=== PATIENT | male | born 1990 ===

== ENCOUNTER 2017-10-29 11:03 | Emergency (ER) | payer SELFPAY ==
[~2017-10-29] VITALS: Ht 177.8 cm; Wt 82.0 kg
[2017-10-29 11:19] VITALS: BP 134/74; PULSE 64; RESP 18; TEMP 97.9; O2SAT 100
[2017-10-29 11:36] VITALS: BP 131/78; PULSE 73; RESP 19; O2SAT 99
--- NOTE | 2017-10-29 11:36 | PD ---
HPI Chief Complaint: GI Complaint Time Seen by Provider: 11:24 Travel History International Travel<30 days: No Contact w/Intl Traveler<30days: No Traveled to known affect area: No History of Present Illness HPI This patient complains of nausea and vomiting. Duration 5 hours. Symptoms are moderately severe. He is diaphoretic. He is having abdominal pain but no fever or diarrhea. No abdominal surgeries. Patient was drinking alcohol last night. He is a daily user of marijuana. He recently was snorting some cocaine. He denies ever using IV drugs. No alleviating factors. Symptoms exacerbated by his polysubstance abuse. [facility] Social History Alcohol Use: No Tobacco Use: No Substance Use: No Allergies-Medications (Allergen,Severity, Reaction): Coded Allergies: No Known Allergies (Unverified , 10/29/17) Reported Meds & Prescriptions Reported Meds & Active Scripts Active Zofran Odt (Ondansetron Odt) 4 Mg Tab 4 Mg SL Q6HR PRN Review of Systems General / Constitutional: No: Fever Eyes: No: Visual changes HENT: No: Headaches Cardiovascular: Positive: Diaphoresis, No: Chest Pain or Discomfort Respiratory: No: Shortness of Breath Gastrointestinal: Positive: Nausea, Vomiting, No: Abdominal Pain Genitourinary: No: Dysuria Musculoskeletal: No: Pain Skin: No Rash Neurologic: No: Weakness Psychiatric: Positive: Substance Abuse, No: Depression Endocrine: No: Polydipsia Hematologic/Lymphatic: No: Easy Bruising Physical Exam Narrative GENERAL: Well-nourished, well-developed patient with nausea and vomiting diaphoresis . SKIN: Focused skin assessment reveals no rash and nodules. Skin is Warm and diaphoretic . HEAD: Atraumatic. Normocephalic. EYES: Pupils equal and round. No scleral icterus. No injection or drainage. ENT: No nasal bleeding or discharge. Mucous membranes pink and moist. NECK: Trachea midline. No JVD. CARDIOVASCULAR: Regular rate and rhythm. No murmur appreciated. RESPIRATORY: No accessory muscle use. Clear to auscultation. Breath sounds equal bilaterally. GASTROINTESTINAL: Abdomen soft, right lower quadrant is tender without rebound or guarding, nondistended. Hepatic and splenic margins not palpable. MUSCULOSKELETAL: No obvious deformities. No clubbing. No cyanosis. No edema. NEUROLOGICAL: Awake and alert. No obvious cranial nerve deficits. Motor grossly within normal limits. Normal speech. PSYCHIATRIC: Appropriate mood and affect; insight and judgment poor . Data Data Last Documented VS Vital Signs Date Time Temp Pulse Resp B/P (MAP) Pulse Ox O2 Delivery O2 Flow Rate FiO2 10/29/17 11:19 97.9 64 18 134/74 (94) 100 Orders Orders Iv Access Insert/Monitor (10/29/17 11:32) Complete Blood Count With Diff (10/29/17 11:32) Comprehensive Metabolic Panel (10/29/17 11:32) Lipase (10/29/17 11:32) Alcohol (Ethanol) (10/29/17 11:32) Sodium Chlor 0.9% 1000 Ml Inj (Ns 1000 M (10/29/17 11:45) Ondansetron Inj (Zofran Inj) (10/29/17 11:45) Promethazine Inj (Phenergan Inj) (10/29/17 11:45) Ct Abd/Pel W Iv Contrast(Rout) (10/29/17 ) Iohexol 350 Inj (Omnipaque 350 Inj) (10/29/17 12:23) Labs Laboratory Tests Test 10/29/17 11:40 White Blood Count 12.9 TH/MM3 Red Blood Count 5.35 MIL/MM3 Hemoglobin 16.4 GM/DL Hematocrit 46.2 % Mean Corpuscular Volume 86.4 FL Mean Corpuscular Hemoglobin 30.7 PG Mean Corpuscular Hemoglobin Concent 35.6 % Red Cell Distribution Width 13.6 % Platelet Count 170 TH/MM3 Mean Platelet Volume 9.4 FL Neutrophils (%) (Auto) 78.4 % Lymphocytes (%) (Auto) 15.9 % Monocytes (%) (Auto) 4.4 % Eosinophils (%) (Auto) 1.0 % Basophils (%) (Auto) 0.3 % Neutrophils # (Auto) 10.1 TH/MM3 Lymphocytes # (Auto) 2.1 TH/MM3 Monocytes # (Auto) 0.6 TH/MM3 Eosinophils # (Auto) 0.1 TH/MM3 Basophils # (Auto) 0.0 TH/MM3 CBC Comment DIFF FINAL Differential Comment Blood Urea Nitrogen 13 MG/DL Creatinine 1.11 MG/DL Random Glucose 124 MG/DL Total Protein 8.4 GM/DL Albumin 4.9 GM/DL Calcium Level 9.9 MG/DL Alkaline Phosphatase 80 U/L Aspartate Amino Transf (AST/SGOT) 23 U/L Alanine Aminotransferase (ALT/SGPT) 42 U/L Total Bilirubin 0.7 MG/DL Sodium Level 140 MEQ/L Potassium Level 4.8 MEQ/L Chloride Level 105 MEQ/L Carbon Dioxide Level 25.2 MEQ/L Anion Gap 10 MEQ/L Estimat Glomerular Filtration Rate 78 ML/MIN Lipase 62 U/L Ethyl Alcohol Level LESS THAN 3 MG/DL MDM Medical Decision Making Medical Screen Exam Complete: Yes Emergency Medical Condition: Yes Medical Record Reviewed: Yes Differential Diagnosis Polysubstance abuse, cyclical vomiting syndrome, dehydration, gastroenteritis Narrative Course I have reviewed the patient's electronic medical record. IV placed Gave him a liter of normal saline IV and IV Zofran and IM Phenergan Lab studies sent Abdomen is soft and benign and nontender Alcohol is negative CBC and metabolic studies and LFTs are all normal On recheck he is clinically much improved I prescribed him some Zofran Discussed that he should as a starting point eliminate his substance abuse Should follow-up with his primary physician Diagnosis Primary Impression: Nausea and vomiting Qualified Codes: R11.2 - Nausea with vomiting, unspecified Additional Impression: Polysubstance abuse Additional Instructions: The patient was advised to follow up with their physician and return if they worsen. I have recommended clear liquids for 24 hours, then gradually advance as tolerated. Eliminate substance abuse Med/Other Pt SpecificInfo: Prescription(s) given Scripts Ondansetron Odt (Zofran Odt) 4 Mg Tab 4 MG SL Q6HR Y for Nausea/Vomiting, #12 TAB 0 Refills Prov: Harris Root MD 10/29/17 Disposition: 01 DISCHARGE HOME Condition: Stable Harris Root MD Oct 29, 2017 11:36
[2017-10-29] MEDS ORDERED: ONDANSETRON HCL 4 MG/2 ML VIAL IV ONE (11:45)
[2017-10-29] MEDS ORDERED: SODIUM CHLOR 0.9% 1000 ML INJ 1,000 ML IV ONE (11:45)
[2017-10-29] MEDS ORDERED: PROMETHAZINE INJ 25 MG/ML VIAL IM ONE (11:45)
[2017-10-29 12:21] LABS: AUTOMATED NEUTROPHIL # 10.1 TH/MM3 (1.8-7.7); BASOPHIL % 0.3 % (0.0-2.0); EOSINOPHIL # 0.1 TH/MM3 (0-0.4); HEMATOCRIT 46.2 % (39.0-51.0); HEMOGLOBIN 16.4 GM/DL (13.0-17.0); LYMPH % 15.9 % (9.0-44.0); LYMPHOCYTE # 2.1 TH/MM3 (1.0-4.8); MEAN CELL VOLUME 86.4 FL (80.0-100.0); MEAN CORPUSCULAR HEMOGLOBIN 30.7 PG (27.0-34.0); MEAN CORPUSCULAR HGB CONC 35.6 % (32.0-36.0); MEAN PLATELET VOLUME 9.4 FL (7.0-11.0); MONO % 4.4 % (0.0-8.0); MONOCYTE # 0.6 TH/MM3 (0-0.9); NEUT % 78.4 % (16.0-70.0); PLATELET COUNT 170 TH/MM3 (150-450); RED BLOOD COUNT 5.35 MIL/MM3 (4.50-5.90); RED CELL DISTRIBUTION WIDTH 13.6 % (11.6-17.2); WHITE BLOOD COUNT 12.9 TH/MM3 (4.0-11.0)
[2017-10-29] MEDS ORDERED: IOHEXOL 350 MG/ML 10 ML VIAL (for RAD DIAG) IVCONTRAST ONE (12:23)
--- NOTE | 2017-10-29 12:30 | RADRPT ---
EXAM DATE/TIME: 10/29/2017 12:08 [place] COMPARISON: No previous studies available for comparison. INDICATIONS : Diffuse abdominal pain for 1 hour, vomiting, chills. IV CONTRAST: 80 cc Omnipaque 350 (iohexol) IV ORAL CONTRAST: No oral contrast ingested. RADIATION DOSE: 5.95 CTDIvol (mGy) MEDICAL HISTORY : Cocaine, marijuana SURGICAL HISTORY : None. ENCOUNTER: Initial ACUITY: 1 day PAIN SCALE: 9/10 LOCATION: Bilateral middle diffuse abdomen. TECHNIQUE: Volumetric scanning of the abdomen and pelvis was performed. Using automated exposure control and ad justment of the mA and/or kV according to patient size, radiation dose was kept as low as reasonably achievable to obtain optimal diagnostic quality images. DICOM format image data is available electro nically for review and comparison. FINDINGS: LOWER LUNGS: The visualized lower lungs are clear. LIVER: Homogeneous density without lesion. There is no dilation of the biliary tree. No calcified gallston es. SPLEEN: Normal size without lesion. PANCREAS: Within normal limits. KIDNEYS: Normal in size and shape. There is no mass, stone or hydronephrosis. ADRENAL GLANDS: Within normal limits. VASCULAR: There is no aortic aneurysm. BOWEL/MESENTERY: The stomach, small bowel, and colon demonstrate no acute abnormality. There is no free intraperitone al air or fluid. ABDOMINAL WALL: Within normal limits. RETROPERITONEUM: There is no lymphadenopathy. BLADDER: No wall thickening or mass. REPRODUCTIVE: Within normal limits. INGUINAL: There is no lymphadenopathy or hernia. MUSCULOSKELETAL: Within normal limits for patient age. CONCLUSION: 1. No acute findings. Zachary Munguia MD on October 29, 2017 at 12:24 Board Certified Radiologist. This report was verified electronically.
[2017-10-29 13:03] LABS: ALBUMIN 4.9 GM/DL (3.4-5.0); ALT (GPT) 42 U/L (12-78); AST (GOT) 23 U/L (15-37); BICARBONATE 25.2 MEQ/L (21.0-32.0); BLOOD UREA NITROGEN 13 MG/DL (7-18); CALCIUM 9.9 MG/DL (8.5-10.1); CREATININE 1.11 MG/DL (0.60-1.30); GLOMERULAR FILTRATION RATE 78 ML/MIN (>89); GLUCOSE,RANDOM 124 MG/DL (74-106)
[2017-10-29 13:49] LABS: ALKALINE PHOSPHATASE 80 U/L (45-117); CHLORIDE 105 MEQ/L (98-107); SODIUM (NA) 140 MEQ/L (136-145); TOTAL BILIRUBIN ADULT 0.7 MG/DL (0.2-1.0); TOTAL PROTEIN 8.4 GM/DL (6.4-8.2)
[2017-10-29] MEDS ORDERED: ZOFR4TAB3 SL (14:14)
[2017-10-29 14:32] VITALS: BP 133/72
== END 2017-10-29 14:34 | disposition home or self-care (01) ==
LOC: NEPD 11:03
DX: R11.2 Nausea with vomiting, unspecified (principal); F19.10 Other psychoactive substance abuse, uncomplicated
CPT/HCPCS: 74177; 80053; 80307; 83690; 85025; 96361; 96372; 96374; 99285; J2405; J2550; J7030; Q9967